=== PATIENT | male | born 1970 | race Two or more races ===

== ENCOUNTER 2020-04-10 08:49 | Emergency (ER) | payer OTHER, SELFPAY ==
[2020-04-10 08:56] VITALS: BP 138/92; PULSE 73; RESP 18; TEMP 37.1; O2SAT 100; BMI 29.5
--- NOTE | 2020-04-10 09:04 | ED_ITS ---
HPI - General Adult General Chief complaint: General Medical Stated complaint: NOT FEELING WELL Time Seen by Provider: 04/10/20 08:57 Source: patient and clerical production worker Mode of arrival: ambulatory Limitations: no limitations History of Present Illness HPI narrative: Patient tells me he has had general malaise and sore throat since yesterday. His children at home are sick and were tested for COVID yesterday. The results are pending. Onset (ago): day(s) ( One day) Radiation: non-radiation Severity: mild Quality: aching Pain Consistency: intermittent Relieving factors: none Exacerbating factors: none Associated symptoms: denies other symptoms Treatments prior to arrival: none Related Data Allergies Allergy/AdvReac Type Severity Reaction Status Date / Time No Known Allergies Allergy Verified 04/08/20 11:08 [No Known Allergies*] Review of Systems Review of Systems: Yes all other systems are reviewed and are negative Constitutional: Constitutional: Reports no additional constitutional complaints, Denies body ache(s), Denies chills, Denies fever(s), Denies headache(s), Reports malaise and Denies weakness Eyes: Eyes: Reports no additional eye complaints and Denies change in vision ENT: Reports system reviewed and no additional complaints, except as documented, Denies dizziness, Denies headache(s), Denies nasal congestion, Denies nasal discharge, Denies neck pain and Reports sore throat Cardiovascular: Cardiovascular: Reports no additional cardiovascular complaints, Denies chest pain, Denies leg edema and Denies dyspnea Respiratory: Respiratory: Reports no additional respiratory complaints, Denies cough and Denies dyspnea Gastrointestinal: Gastrointestinal: Reports no additional gastrointestinal complaints, Denies abdominal pain, Denies diarrhea, Denies nausea and Denies vomiting Genitourinary: Genitourinary: Denies urinary incontinence Musculoskeletal: Musculoskeletal: Reports no additional musculoskeletal complaints, Denies back pain, Denies arthralgias, Denies joint swelling, Denies neck pain, Denies numbness and Denies tingling Integumentary/Breasts: Skin/Breast: Reports system reviewed and no additional complaints, except as docu and Denies rash Neurologic: Reports system reviewed and no additional complaints, except as documented, Denies Abnormal speech present, Denies dizziness, Denies hea dache(s), Denies numbness, Denies tingling and Denies weakness PMFSH Past Medical History Attestation statement: The following information was validated with the patient. Source: obtained from family and nursing notes reviewed Surgical History History of surgery History of vasectomy Family History Family History Father No problems noted. Mother No problems noted. Social History Social History Alcohol intake: current Alcohol intake frequency: holidays/special occasions only Smoking Status: Never smoker Use of substances other than those prescribed or required for medical reasons: No Advance Directives: No Advance Directives Information Provided: No Physical Exam Vital Signs: Vital Signs: Vital Signs Temp Pulse Resp BP Pulse Ox 04/10/20 09:07 98.8 F 04/10/20 08:56 98.8 F 73 18 138/92 H 100 Body Mass Index 29.5 Const: General: cooperative, healthy appearing, comfortable and no acute distress Orientation/consciousness: patient oriented x3 Limitations: no limitations HENMT: Head: Yes normal to inspection Ears: hearing grossly normal bilaterally General nose exam: Normal external nose present Face and sinus: Yes normal facial exam Mouth: Normal oral and palatal mucosa present Throat: Yes posterior oropharynx normal Eyes: General: appearance normal, both eyes and all related structures Pupils: Equal, round and reactive pupils present Neck: Neck: Yes normal visual inspection Chest: Chest palpation & inspection: normal inspection of the chest Resp: Effort & Inspection: normal respiratory effort Auscultation: clear to auscultation bilaterally Cardio: Rate: regular rate Rhythm: regular rhythm Peripheral pulses: Peripheral pulses 2+ throughout GI: Inspection: Yes normal to inspection Palpation (GI): Soft to palpation and nontender Auscultation: normal bowel sounds Back/Spine/Pelvis: Thoracic/Lumbar Spine: thoracic and lumbar spine normal to inspection Skin: General skin exam: no rashes or lesions noted Neuro: General: patient oriented x3, no focal motor deficits and normal sensation to monofilament Cranial nerves: Yes Equal, round and reactive pupils present Cognition (Neuro): normal cognition Speech: No Abnormal s peech present Gait exam (Neuro): Normal gait present Motor exam (neuro): 5/5 motor strength present throughout Extrem: General: Yes normal to inspection Course Course Course Narrative: well appearing. Stable vital signs. Benign exam. Speaking full sentences with clear lung sounds. Throat is not consistent with strep pharyngitis. Patient requesting COVID testing. This was sent. Reviewed worrisome signs and symptoms and when to return to the emergency department. Comfortable discharge home. Discharge Plan Discharge Clinical Impression: Acute viral syndrome Patient Disposition: Home, Self-Care Instructions: Viral Syndrome (ED) Additional Instructions: We have tested you today for COVID 19. Test results take 1-2 days and we will call you with the results negative or positive. Take tylenol or motrin if able as needed for pain or fever. Stay well hydrated with fluids like water, gatorade and/or powerade. Wash hands at home. If living with others try to self isolate if possible. If unable wear a mask around others in your home and wash hands frequently. If COVID test is positive you will need to self isolate for a total of 10 days from when your symptoms started and be symptoms free for 24 hrs. You may return to work sooner if testing is negative and all symptoms resolved >72 hours. You should return to the emergency department for severe shortness of breath, chest pain or fever which does not respond to both tylenol and motrin at home. Referrals: Hunter Soto MD [Primary Care Provider] - 2 days Stand Alone Forms: Work/School Release Interventions: ED Discharge Assessment Last Done: 04/10/20 09:50 Discharge Date/Time: 04/10/20 09:51 Print Language: Bulgarian
[2020-04-10 09:07] VITALS: TEMP 37.1
== END 2020-04-10 09:51 | disposition home or self-care (01) ==
PROVIDERS: Nurse Practitioner Family; Emergency Provider Emergency Medicine; PCP Internal Medicine
DX: B34.9 Viral infection, unspecified (principal); R53.81 Other malaise; Z20.828 Contact with and (suspected) exposure to other viral communicable diseases
CPT/HCPCS: 99283; 99284; U0003

== ENCOUNTER 2020-08-09 06:58 | Outpatient (REF) | payer OTHER, SELFPAY ==
[2020-08-09 08:07] LABS: Appearance Urine CLEAR; Color Urine YELLOW; Glucose Urine UA NEG (NEG); Leukocyte Esterase Urine NEG (NEG); Nitrite Urine NEG (NEG); Specific Gravity - Urine >= 1.030 (1.005-1.025); Urine Blood TRACE (NEG); Urine Ketones NEG (NEG); Urine Protein NEG (NEG-TRACE)
[2020-08-09 08:17] LABS: Mucus Urine 1+ /LPF; RBC Urine 0-2 /HPF (0); Squamous Epithelial Cell Urine TRACE /LPF; WBC Urine 0-2 /HPF (0-4)
[2020-08-09 08:19] LABS: MANUAL DIFF FLAG NO
[2020-08-09 08:28] LABS: Basophils Absolute Auto 0.1 X10*3/uL (0.0-0.2); Basophils Percent Auto 0.9 % (0-2); Eosinophils Absolute Auto 0.1 X10*3/uL (0.0-0.4); Eosinophils Percent Auto 1.5 % (0-4); Hematocrit 46.1 % (42-52); Imm Gran Abs Auto 0.02 X10*3/uL (0.00-0.03); Imm Gran Pct Auto 0.4 % (0.0-0.4); Lymphocytes Absolute Auto 1.3 X10*3/uL (1.2-4.9); Lymphocytes Percent Auto 24.6 % (20-40); Mean Corpuscular HGB Conc 34.7 g/dl (31.0-36.0); Mean Corpuscular Hemoglobin 31.8 pg (27.0-33.0); Mean Corpuscular Volume 91.7 fL (80-98); Mean Platelet Volume 9.5 fL (9.4-12.4); Monocytes Absolute Auto 0.5 X10*3/uL (0.1-1.2); Monocytes Percent Auto 9.4 % (2-11); Neutrophils Absolute Auto 3.4 X10*3/uL (2.0-8.3); Neutrophils Percent Auto 63.2 % (45-73); Platelet Count 274 X10*3/uL (160-400); Red Blood Count 5.03 X10*6/uL (4.60-5.80); Red Cell Distribution Width 12.4 % (11.0-16.0); White Blood Count 5.4 X10*3/uL (4.8-10.8)
[2020-08-09 08:50] LABS: Alanine Aminotransferase 20 U/L (0-40); Albumin Level 4.5 g/dL (3.5-5.0); Alkaline Phosphatase 66 U/L (39-117); Anion Gap 11 (12-20); Aspartate Amino Transferase 18 U/L (5-37); Bilirubin Total 0.7 mg/dL (0.0-1.0); Blood Urea Nitrogen 14 mg/dL (9-16); Calcium 9.3 mg/dL (8.4-10.2); Carbon Dioxide 32 mmol/L (22-29); Chloride 104 mmol/L (96-108); Cholesterol 153 mg/dL; Estimated Glomerular Filt Rate > 60; Glucose Fasting 90 mg/dL (60-99); HDL Cholesterol 39 mg/dL; LDL Cholesterol Calculated 95 mg/dl; Potassium 4.4 mmol/L (3.3-5.1); Sodium 143 mmol/L (135-145); Total Protein 7.5 g/dL (6.5-8.0); Triglycerides 98 mg/dL
[2020-08-09 09:12] LABS: Thyroid Stimulating Hormone 1.18 uIU/mL (0.32-4.0)
== END 2020-08-09 06:59 | disposition home or self-care (01) ==
LOC: HO.LAB 06:58
PROVIDERS: PCP Internal Medicine; Visit Provider Internal Medicine
DX: E04.1 Nontoxic single thyroid nodule (principal); E66.3 Overweight; I10 Essential (primary) hypertension
CPT/HCPCS: 36415; 80053; 80061; 81001; 84439; 84443; 85025

== ENCOUNTER 2020-08-11 15:20 | Outpatient (REF) | payer OTHER, SELFPAY ==
--- NOTE | ~2020-08-11 | US_ITS ---
EXAMINATION: US SOFT TISSUE OF THE NECK CLINICAL INFORMATION: Localized swelling, mass and lump, trunk. COMPARISON: Ultrasound soft tissue head/neck thyroid dated 08/06/2014 and 01/25/2012. CT neck 01/21/2012. TECHNIQUE: Linear transducer grayscale and color Doppler examination of the left supraclavicular area and left posterior trunk. FINDINGS: Imaging through the left palpable supraclavicular area reveals a hypoechoic linear structure likely thickened musculature or ligament but no fluid collection or mass seen. Imaging through the palpable area through left posterior trunk reveals normal tissue layers with small anechoic area, likely fluid collection. It measures 2.1 x 0.6 x 1.5 cm. Differential diagnosis includes free fluid from muscle contusion or injury. US/US soft tiss head and/or neck IMPRESSION: Likely thickened muscle or ligament in left supraclavicular region where palpable lump is seen. There is an elliptical area of fluid collection in the left posterior trunk likely secondary vessel contusion/injury or focal inflammatory changes. No mass seen.
== END 2020-08-11 15:21 | disposition home or self-care (01) ==
LOC: HO.US 15:20
PROVIDERS: PCP Internal Medicine; Visit Provider Internal Medicine
DX: R22.2 Localized swelling, mass and lump, trunk (principal)
CPT/HCPCS: 76536

== ENCOUNTER 2021-09-30 06:55 | Outpatient (REF) | payer OTHER, SELFPAY ==
[2021-09-30 07:14] LABS: MANUAL DIFF FLAG NO
[2021-09-30 07:47] LABS: Basophils Absolute Auto 0.1 X10*3/uL (0.0-0.2); Eosinophils Absolute Auto 0.2 X10*3/uL (0.0-0.4); Eosinophils Percent Auto 3.5 % (0-4); Hematocrit 40.6 % (42.0-52.0); Hemoglobin 13.7 g/dl (14.0-18.0); Imm Gran Abs Auto 0.02 X10*3/uL (0.00-0.03); Imm Gran Pct Auto 0.3 % (0.0-0.4); Lymphocytes Absolute Auto 1.1 X10*3/uL (1.2-4.9); Lymphocytes Percent Auto 17.8 % (20-40); Mean Corpuscular HGB Conc 33.7 g/dl (31.0-36.0); Mean Corpuscular Hemoglobin 31.1 pg (27.0-33.0); Mean Corpuscular Volume 92.1 fL (80.0-98.0); Mean Platelet Volume 9.1 fL (9.4-12.4); Monocytes Absolute Auto 0.6 X10*3/uL (0.1-1.2); Monocytes Percent Auto 9.4 % (2-11); Neutrophils Absolute Auto 4.3 x10*3/uL (2.0-8.3); Platelet Count 226 X10*3/uL (160-400); Red Blood Count 4.41 X10*6/uL (4.60-5.80); Red Cell Distribution Width 12.5 % (11.0-16.0); White Blood Count 6.3 X10*3/uL (4.8-10.8)
[2021-09-30 08:10] LABS: Alanine Aminotransferase 17 U/L (0-40); Alkaline Phosphatase 62 U/L (39-117); Anion Gap 9 (12-20); Aspartate Amino Transferase 15 U/L (5-37); Bilirubin Total 0.5 mg/dL (0.0-1.0); Blood Urea Nitrogen 16 mg/dL (9-16); Calcium 9.2 mg/dL (8.4-10.2); Carbon Dioxide 31 mmol/L (22-29); Chloride 104 mmol/L (96-108); Cholesterol 134 mg/dL; Estimated Glomerular Filt Rate > 60; Glucose Fasting 92 mg/dL (60-99); HDL Cholesterol 38 mg/dL; LDL Cholesterol Calculated 83 mg/dl; Potassium 4.3 mmol/L (3.3-5.1); Sodium 140 mmol/L (135-145); Total Protein 6.8 g/dL (6.5-8.0); Triglycerides 66 mg/dL
[2021-09-30 08:17] LABS: Prostate Specific Antigen 0.88 ng/mL (<0.05-4.0); TSH reflex Free T4 0.56 uIU/mL (0.32-4.0); Vitamin D 25-OH Total 17.2 ng/mL (>30)
[2021-09-30 08:21] LABS: Appearance Urine CLEAR; Color Urine YELLOW; Glucose Urine UA NEG (NEG); Leukocyte Esterase Urine NEG (NEG); Nitrite Urine NEG (NEG); PH 6.5 (5.0-8.0); UACC Culture Trigger NO; Urine Blood TRACE (NEG); Urine Ketones NEG (NEG); Urine Protein NEG (NEG-TRACE)
[2021-09-30 09:18] LABS: Squamous Epithelial Cell Urine TRACE /LPF; WBC Urine 0 /HPF (0-4)
== END 2021-09-30 06:56 | disposition home or self-care (01) ==
LOC: HO.LAB 06:55
PROVIDERS: PCP Internal Medicine; Visit Provider Internal Medicine
DX: Z00.00 Encounter for general adult medical examination without abnormal findings (principal); Z12.5 Encounter for screening for malignant neoplasm of prostate; E78.00 Pure hypercholesterolemia, unspecified; I10 Essential (primary) hypertension; E55.9 Vitamin D deficiency, unspecified; N40.0 Benign prostatic hyperplasia without lower urinary tract symptoms
CPT/HCPCS: 36415; 80053; 80061; 81001; 82306; 84153; 84443; 85025

== ENCOUNTER 2023-02-06 14:37 | Outpatient (REF) | payer OTHER, SELFPAY ==
--- NOTE | ~2023-02-06 | US_ITS ---
EXAMINATION: US THYROID CLINICAL INFORMATION: Thyroid nodule. COMPARISON: Ultrasound soft tissue neck 08/11/2020. Ultrasound soft tissue head/neck thyroid dated 12/23/2016. TECHNIQUE: Linear transducer grayscale and color Doppler examination with attention to the region of the thyroid. FINDINGS: SIZE: Measurements of the thyroid lobes and nodules are given in sagittal, anteroposterior and transverse dimensions respectively. Right Thyroid Lobe: 4.4 x 1.6 x 2.2 cm, volume 8.1 mL. Previously 4.4 x 1.9 x 2.0 cm, volume 8.7 mL. Parenchyma: The gland echotexture is homogeneous. Thyroid vascularity is normal. Left Thyroid Lobe: 4.7 x 1.6 x 1.8 cm, volume 7.1 mL. Previously 5.0 x 1.7 x 1.6 cm, volume 7.0 mL. Parenchyma: The gland echotexture is homogeneous. Thyroid vascularity is normal. Isthmus: 0.5 cm in maximum AP dimension. Previously 0.2 cm. Estimated total number of nodules greater than or equal to 1 cm: 1. Shel[employer]ocate nodules are described as follows: 1. Location: Right inferior. Size: 1.0 x 0.9 x 1.0 cm, volume 0.5 mL. Previously: 1.5 x 1.0 x 1.3 cm, volume 1.0 mL. Nodule characteristics: Composition: Solid (2). Echogenicity: Isoechoic (1). Shape: Not taller than wide (0). Margins: Ill-defined (0). Echogenic Foci: None (0). ACR TI-RADS total points: 3 ACR TI-RADS category: 3 Significant change in size (>/= 20% in 2 dimensions and minimal increase of 2 mm or 50% or greater increase in volume): No Change in features: No Change in ACR TI-RADS risk category: No NODES: No lymphadenopathy is seen in the tissue surrounding the thyroid gland. US/US thyroid IMPRESSION: A small right thyroid lobe nodule seen, as detailed. No specific ultrasound follow-up is recommended. ACR TI-RADS RECOMMENDATION REFERENCE: Ultrasound-guided fine-needle aspiration, follow up ultrasound, no further followup. * TR1 (0 point) and TR2 (2 points): No FNA or followup * TR3 (3 points): FNA if more than or equal to 2.5 cm in maximum dimension, follow up ultrasound in 1, 3 and 5 years if 1.5 to 2.4 cm in maximum dimension. * TR4 (4-6 points): FNA if more than or equal to 1.5 cm in maximum dimension, follow up ultrasound in 1, 2, 3 and 5 years if 1 to 1.4 cm in maximum dimension. * TR5 (more than or equal to 7 points): FNA if more than or equal to 1 cm in maximum dimension, follow up ultrasound every year for 5 years if 0.5 to 0.9 cm in maximum dimension. * TR3, TR4 or TR5 nodules that are below the size threshold for follow up receive no followup.
== END 2023-02-06 14:38 | disposition home or self-care (01) ==
LOC: HO.US 14:37
PROVIDERS: Absent Provider Internal Medicine; PCP Internal Medicine; Visit Provider Registered Nurse
DX: E04.2 Nontoxic multinodular goiter (principal)
CPT/HCPCS: 76536

== ENCOUNTER 2023-07-08 09:43 | Day surgery (SDC) | payer OTHER, SELFPAY ==
[2023-07-04 14:31] VITALS: BMI 28.3
[2023-07-08 10:33] VITALS: BMI 27.4
--- NOTE | 2023-07-08 10:34 | PC.NURSE ---
patient states used cocaine many years ago in past, along with alcohol and cigarettes.
--- NOTE | 2023-07-08 10:47 | P.CONAN_ITS ---
HPI - Anesthesia Eval Consult details Narrative: 53 yo male patient for Colonoscopy PMFSH Active Problems Active Problems: All Active Problems (Updated 07/08/23 @ 10:48 by Molly Arellano MD) Annual physical exam (Acute) Colon cancer screening (Acute) Benign prostatic hyperplasia with elevated prostate specific antigen (PSA) (Acute) Lipoma (Acute) GERD without esophagitis (Acute) Subcutaneous mass of supraclavicular area (Acute) Overweight (BMI 25.0-29.9) (Acute) Left knee pain (Acute) Thyroid nodule (Acute) Benign essential hypertension (Acute) Vagal with IV placement this morning. VSS now Past Medical History Medical History (Updated 07/08/23 @ 11:01 by Molly Arellano MD) Cocaine abuse Benign prostatic hyperplasia with elevated prostate specific antigen (PSA) Lipoma GERD without esophagitis Subcutaneous mass of supraclavicular area Overweight (BMI 25.0-29.9) Left knee pain Thyroid nodule Benign essential hypertension Family History Family History Father No problems noted. Mother No problems noted. Family history of problems with anesthesia: No Surgical History Surgical History History of surgery History of vasectomy History of Problems with Anesthesia: No Social History Social History (Updated 07/08/23 @ 11:00 by Molly Arellano MD) Housing: House Alcohol intake: current Alcohol intake frequency: former alcohol drinker Patient Tobacco Use Status: Former Tobacco user Second Hand Smoke Exposure: Yes Current occupational status: employed Meds Allergies Allergy/AdvReac Type Severity Reaction Status Date / Time No Known Allergies Allergy Verified 07/08/23 10:35 [No Known Allergies*] Active Medications: Current Medications Lactated Ringer's (Lr) 1,000 mls @ 80 mls/hr IVCONT .[id number] NISHANT Sodium Biphosphate/Sodium Phosphate (Sodium Phosphate,[place]-Dibasic 133 Ml Enema) 133 ml NC ONCE PRN PRN Reason: Poor Colonoscopy Prep Results Exam Height,Weight and Vital Signs: Height 6 ft Weight 91.716 kg Vital Signs Temp Pulse Resp BP Pulse Ox O2 Del Method 07/08/23 10:49 45 L 18 97/61 07/08/23 10:48 97.9 F 83 18 128/87 98 Room Air Airway Mallampati Class: III TM Dist: >3cm Neck ROM: Full Loose/Missing/Broken Teeth: No (Permanent bridge intact. Denies broken, loose, missing teeth) Heart: RRR Lungs: CTAB Assessment and Plan Assessment Anesthesia Assessment: Anesthesia Plan Discussed and Chart Reviewed Final Anesthetic Review Family History of Problems with Anesthesia: No History of Problems with Anesthesia: No NPO: Yes ASA Class: II Final Preanesthetic Review: No Changes in Pt Med Stat, Meds/Allgs Chart Reviewed, Consent Obtained/Reviewed and Anes Risks/Benef Reviewed Patient Risk: Intermediate Procedure Risk: Low Assessment/Block/Sedation in SS: Assess/Block/Sedation-SS Anesthetic Plan Anesthetic Plan: MAC: and TIVA Disposition: Standard PACU
[2023-07-08 10:48] VITALS: BP 128/87; PULSE 83; RESP 18; TEMP 36.6; O2SAT 98
[2023-07-08 10:49] VITALS: BP 97/61; PULSE 45; RESP 18
[2023-07-08] MEDS: Lactated Ringers 1,000 ML 80 ML IVCONT (10:52)
--- NOTE | 2023-07-08 10:53 | PC.NURSE ---
dizziness post IV has resolved. see notes in vs interventions.
[2023-07-08 12:20] VITALS: BP 94/54; PULSE 74; RESP 16; TEMP 37; O2SAT 96
--- NOTE | 2023-07-08 12:20 | PM.OP ---
Brief Operative Note Date of Service: 07/08/23 Pre-op diagnosis: Screening Post-op diagnosis: other (Mild diverticulosis) Procedure: Colonosocpy to the cecum and TI Surgeon: Memo Jarquin MD Anesthesia: MAC Was an International Operations Manager used for this Procedure?: No Estimated blood loss (mL): 0 Pathology: none sent Condition: stable Disposition: PACU
[2023-07-08 12:25] VITALS: BP 115/70; PULSE 68; RESP 16; O2SAT 95
[2023-07-08 12:35] VITALS: BP 117/85; PULSE 62; RESP 20; TEMP 36.3; O2SAT 97
--- NOTE | 2023-07-08 12:51 | OP_ITS ---
DATE OF SERVICE: 07/08/2023 SURGEON: Memo Jarquin MD INDICATIONS: The patient presents for evaluation of colorectal cancer screening. Full consent has been obtained from him for this, including risks of bleeding and perforation. PREOPERATIVE DIAGNOSIS: Colorectal cancer screening. POSTOPERATIVE DIAGNOSIS: PROCEDURE PERFORMED: Colonoscopy to cecum and terminal ileum. ESTIMATED BLOOD LOSS: COMPLICATIONS: ANESTHESIA: Monitored anesthesia care. ASSISTANTS: SPECIMENS: POSTOPERATIVE DIAGNOSES: Colorectal cancer screening, mild sigmoid diverticulosis, small internal hemorrhoids. DESCRIPTION OF PROCEDURE: The patient was placed in the left lateral decubitus position. The digital rectal exam revealed no abnormalities. The Olympus video pediatric colonoscope was entered into the rectum and advanced easily to the cecum. Once in the cecum, I did identify normal-appearing cecal pouch with appendiceal orifice and a normal-appearing ileocecal valve. The terminal ileum was cannulated and appeared normal. The scope was withdrawn back in the colon. The entire cecum and ileocecal valve appeared normal. The scope was slowly withdrawn assessing all mucosal surfaces carefully. Preparation was excellent after some irrigation and suctioning. I did not visualize any sign of polyps, colitis, nor angiodysplasia. There was a mild amount of sigmoid diverticulosis. In the rectum, scope was retroflexed visualizing small internal hemorrhoids, but no other pathology. The rectal mucosa appeared normal. The scope was straightened and withdrawn from the patient. He tolerated the procedure well and was returned to the recovery area in stable condition. IMPRESSION: 1. Mild sigmoid diverticulosis. 2. Small internal hemorrhoids. PLAN: Given today's negative exam and negative family history, I would recommend a followup colonoscopy in 10 years. He will otherwise see me on a p.r.n. basis. MD LORENA Obrien/ELOISE / [id number] TIM
== END 2023-07-08 13:15 | disposition home or self-care (01) ==
PROVIDERS: PCP Internal Medicine; Visit Provider Internal Medicine
PROC: 0DJD8ZZ Inspection of Lower Intestinal Tract, Via Natural or Artificial Opening Endoscopic (ICD-10-PCS; CPT 45378; principal; 2023-07-08 10:30)
DX: Z12.11 Encounter for screening for malignant neoplasm of colon (principal); K57.30 Diverticulosis of large intestine without perforation or abscess without bleeding; K64.8 Other hemorrhoids; I10 Essential (primary) hypertension; F14.10 Cocaine abuse, uncomplicated; Z79.899 Other long term (current) drug therapy
CPT/HCPCS: 45378; J2704

== ENCOUNTER 2023-08-24 07:03 | Outpatient (REF) | payer OTHER, SELFPAY ==
[2023-08-24 07:47] LABS: Alanine Aminotransferase 19 U/L (0-40); Albumin Level 4.2 g/dL (3.5-5.0); Alkaline Phosphatase 72 U/L (39-117); Anion Gap 12 (12-20); Aspartate Amino Transferase 16 U/L (5-37); Bilirubin Total 0.6 mg/dL (0.0-1.0); Blood Urea Nitrogen 15 mg/dL (9-16); Calcium 9.8 mg/dL (8.4-10.2); Carbon Dioxide 28 mmol/L (22-29); Chloride 104 mmol/L (96-108); Cholesterol 150 mg/dL (<200); Estimated Glomerular Filt Rate > 60; Glucose Random 93 mg/dL (60-115); HDL Cholesterol 40 mg/dL (>40); LDL Cholesterol Calculated 98 mg/dL (<100); Potassium 4.1 mmol/L (3.3-5.1); Sodium 140 mmol/L (135-145); Total Protein 7.5 g/dL (6.5-8.0); Triglycerides 64 mg/dL (<150)
[2023-08-24 08:05] LABS: TSH reflex Free T4 0.74 uIU/mL (0.32-4.0)
[2023-08-24 08:12] LABS: Prostate Specific Antigen 1.14 ng/mL (<0.05-4.0)
== END 2023-08-24 07:04 | disposition home or self-care (01) ==
LOC: HO.LAB 07:03
PROVIDERS: PCP Internal Medicine; Visit Provider Registered Nurse
DX: Z12.5 Encounter for screening for malignant neoplasm of prostate (principal); Z13.6 Encounter for screening for cardiovascular disorders; E04.2 Nontoxic multinodular goiter
CPT/HCPCS: 36415; 80053; 80061; 84153; 84443

== ENCOUNTER 2023-10-23 09:33 | Outpatient (AMB) | payer OTHER, SELFPAY ==
--- NOTE | 2023-10-23 10:33 | A.OFFVIS_ITS ---
Vital Signs 10/23/23 10:37 Height 5 ft 11.5 in Weight 206 lb BMI 28.3 BP 118/74 Blood Pressure Location Rt brachial Position Sitting Pulse 61 Intake Visit Reasons: Lipoma of back Intake Note: This patient presents for an assessment for lipoma of back. Pt c/o; reports no pain or discomfort. Dependency Case Manager Required: Yes Dependency Case Manager Language: Receiving Teller Name: Ban Information Interpreted: non-clinical & clinical Accompanied by: Self / Same As Patient Allergies No Known Allergies [No Known Allergies*] Allergy (Verified 10/23/23 10:38) Medication List - Last Reconciled 10/23/23 by Chilo Angel MD amlodipine 2.5 mg PO DAILY hydrochlorothiazide 12.5 mg PO QAM 90 days lisinopril 40 mg PO DAILY 90 days omeprazole 20 mg PO DAILY 90 days HPI HPI Lipoma of back: Details: 53-year-old male referred for a lipoma on the back. He says that he has noticed this lump for about a year. He describes discomfort in wants this removed. He denies any skin changes. He denies any drainage. [facility] Medical History Cocaine abuse Benign prostatic hyperplasia with elevated prostate specific antigen (PSA) Lipoma GERD without esophagitis Subcutaneous mass of supraclavicular area Overweight (BMI 25.0-29.9) Left knee pain Thyroid nodule Benign essential hypertension Surgical History History of surgery History of vasectomy Family History Father No problems noted. Mother No problems noted. Social History Housing: House Alcohol intake: current Alcohol intake frequency: former alcohol drinker Patient Tobacco Use Status: Former Tobacco user Second Hand Smoke Exposure: Yes Current occupational status: employed Review of Systems Const Denies chills and Denies fever(s) Card Denies chest pain, Denies dyspnea and Denies dyspnea on exertion Resp Denies cough, Denies dyspnea and Denies dyspnea on exertion GI Denies hematochezia and Denies change in bowel habits Denies hematuria and Denies difficulty urinating Musc Denies back pain and Denies limited range of motion Neuro Denies focal weakness and Denies convulsions Psych Denies depression and Denies mood swings Physical Exam Vital Signs: Last Vital Signs Pulse 61 10/23/23 10:37 BP 118/74 10/23/23 10:37 BMI result Body Mass Index 28.3 Const General: comfortable and no acute distress Orientation/consciousness: patient oriented x3 Neck Neck: Yes no lymphadenopathy Resp Auscultation: clear to auscultation bilaterally Cardio Rhythm: regular rhythm GI Palpation (GI): Soft to palpation, nontender and no guarding Back/Spine/Pelvis Other: Lipomatous mass, about 3 cm in size, on the left upper back, well-defined mobile Neuro General: patient oriented x3 Assessment & Plan Assessment & Plan (1) Lipoma: Code(s): D17.9 - Benign lipomatous neoplasm, unspecified Category: Medical Qualifiers: Lipoma location: trunk Qualified Code(s): D17.1 - Benign lipomatous neoplasm of skin and subcutaneous tissue of trunk Plan: He wants to proceed with excision of this lipoma from the back. I explained the technique of excision under local anesthesia. I reviewed the risks including but not limited to bleeding and infections as well as the benefits and alternatives. I reviewed with him what to expect postoperatively. He says he understands and wants to proceed. This will be done as an office procedure on his next visit. Coding Level of Care Code New Pt Level 3 (35139) Diagnoses Lipoma of torso D17.1 Lipoma location: trunk
[2023-10-23 10:37] VITALS: BP 118/74; PULSE 61; BMI 28.3
== END 2023-10-23 10:51 | disposition home or self-care (01) ==
PROVIDERS: PCP Internal Medicine; Visit Provider Surgery
DX: D17.1 Benign lipomatous neoplasm of skin and subcutaneous tissue of trunk (principal)
CPT/HCPCS: 99203

== ENCOUNTER → 2023-10-23 09:33 | Outpatient (BNVA) | payer OTHER, SELFPAY | PROVIDERS: PCP Internal Medicine; Visit Provider Surgery ==

== ENCOUNTER 2023-11-21 14:00 | Outpatient (AMB) | payer OTHER, SELFPAY ==
--- NOTE | 2023-11-21 15:39 | MHC.PERIOP ---
Perioperative consult (office) Opioid risk tool Total Score 0 Total Score Risk Category Low Risk Recommendations Kasey-op med management Currently, there are no high priority active medications. Therefore, no specific actions are indicated. Coding
--- NOTE | 2023-11-21 15:44 | A.OFFVIS_ITS ---
Intake Visit Reasons: Exc lipoma of back Allergies No Known Allergies [No Known Allergies*] Allergy (Verified 10/23/23 10:38) HPI HPI Exc lipoma of back: Details: He is here for excision of a lipoma from the back [facility] Medical History (Updated 11/21/23 @ 15:46 by Chilo Angel MD) Lipoma of back Cocaine abuse Benign prostatic hyperplasia with elevated prostate specific antigen (PSA) Lipoma GERD without esophagitis Subcutaneous mass of supraclavicular area Overweight (BMI 25.0-29.9) Left knee pain Thyroid nodule Benign essential hypertension Surgical History History of surgery History of vasectomy Family History Father No problems noted. Mother No problems noted. Social History Housing: House Alcohol intake: current Alcohol intake frequency: former alcohol drinker Patient Tobacco Use Status: Former Tobacco user Second Hand Smoke Exposure: Yes Current occupational status: employed Office Procedures Excision Details: He was in right lateral decubitus position. The lipomas seen on the left upper back. This area was prepped and draped. Lidocaine 1% was used for local anesthesia. I made an incision on the skin overlying the lipoma with a blade 15. This was carried down sharply through the full-thickness of the skin and thick subcutaneous fat until was able to visualize the lipoma. I sharply dissected the lipoma off the rest of the subcutaneous layer circumferentially with Metzenbaum scissors until this was delivered and sent as a specimen. This measured 5 x 4 cm. I observed for hemostasis. Once hemostasis was confirmed, I closed the incision with full-thickness nylon 3-0 interrupted sutures. Dressings were applied. The procedure was completed. He tolerated procedure well. There were no immediate complications. There was minimal blood loss. [id number]/arms/legs >4cm Procedure code (CPT) selection complete Assessment & Plan Assessment & Plan (1) Lipoma of back: Code(s): D17.1 - Benign lipomatous neoplasm of skin and subcutaneous tissue of trunk Category: Medical Plan: Excision was done in the office under local anesthesia. He tolerated procedure well. He was given wound care instructions. He will be seen for removal sutures. He can take Tylenol and ibuprofen. Coding Level of Care Code Procedure Only Diagnoses Lipoma of back D17.1 CPT Codes Trunk/Arms/Legs - CPT: 24697-[id number]/arms/legs >4cm ([id number])
== END 2023-11-21 15:52 | disposition home or self-care (01) ==
PROVIDERS: PCP Internal Medicine; Visit Provider Surgery
DX: D17.1 Benign lipomatous neoplasm of skin and subcutaneous tissue of trunk (principal)
CPT/HCPCS: 21931

== ENCOUNTER → 2023-11-21 14:00 | Outpatient (BNVA) | payer OTHER, SELFPAY | PROVIDERS: PCP Internal Medicine; Visit Provider Surgery | DX: D17.1 Benign lipomatous neoplasm of skin and subcutaneous tissue of trunk (principal) | CPT/HCPCS: 21931; 88304 ==

== ENCOUNTER 2023-12-09 14:59 | Outpatient (AMB) | payer OTHER, SELFPAY ==
--- NOTE | 2023-12-09 15:16 | A.OFFVIS_ITS ---
Vital Signs 12/09/23 15:28 Height 5 ft 11.5 in Intake Visit Reasons: wound check lipoma~ lt upper back Intake Note: This patient presents for a post-op assessment status post excision lipoma left upper back. Patient c/o; reports no complaints at this time. Deicer Element Winder Machine Required: Yes Deicer Element Winder Machine Language: Macedonian Accompanied by: Self / Same As Patient Allergies No Known Allergies [No Known Allergies*] Allergy (Verified 12/09/23 15:29) HPI HPI wound check lipoma~ lt upper back: Details: He underwent excision of a large lipoma from the left upper back under local anesthesia last 11/21/2023. He tolerated procedure well. He currently denies significant complaints. [facility] Medical History Lipoma of back Cocaine abuse Benign prostatic hyperplasia with elevated prostate specific antigen (PSA) Lipoma GERD without esophagitis Subcutaneous mass of supraclavicular area Overweight (BMI 25.0-29.9) Left knee pain Thyroid nodule Benign essential hypertension Surgical History S/P excision of lipoma (~11/21/23) History of surgery History of vasectomy Family History Father No problems noted. Mother No problems noted. Social History Housing: House Alcohol intake: current Alcohol intake frequency: former alcohol drinker Patient Tobacco Use Status: Former Tobacco user Second Hand Smoke Exposure: Yes Current occupational status: employed Review of Systems Const Denies chills and Denies fever(s) Physical Exam Const General: comfortable and no acute distress Resp Effort & Inspection: normal respiratory effort Back/Spine/Pelvis Other: Excision site is well healed, not infected, sutures intact Assessment & Plan Assessment & Plan (1) Lipoma of back: Code(s): D17.1 - Benign lipomatous neoplasm of skin and subcutaneous tissue of trunk Category: Medical Plan: Status post excision. His incision is well healed. I removed his sutures. His path report shows a fibrolipoma. He understands the benign nature of this pathology. He can follow up on a p.r.n. basis. Coding Level of Care Code Global (08349) Diagnoses Lipoma of back D17.1
== END 2023-12-09 15:55 | disposition home or self-care (01) ==
PROVIDERS: PCP Internal Medicine; Visit Provider Surgery
DX: D17.1 Benign lipomatous neoplasm of skin and subcutaneous tissue of trunk (principal)
CPT/HCPCS: 99024

== ENCOUNTER → 2023-12-09 14:59 | Outpatient (BNVA) | payer OTHER, SELFPAY | PROVIDERS: PCP Internal Medicine; Visit Provider Surgery ==

== ENCOUNTER 2024-09-19 07:07 | Outpatient (REF) | payer BC, SELFPAY ==
[2024-09-19 08:48] LABS: Alanine Aminotransferase 29 U/L (0-40); Albumin Level 4.3 g/dL (3.5-5.0); Alkaline Phosphatase 82 U/L (39-117); Anion Gap 11 (12-20); Aspartate Amino Transferase 25 U/L (5-37); Bilirubin Total 0.5 mg/dL (0.0-1.0); Blood Urea Nitrogen 17 mg/dL (9-16); Calcium 9.6 mg/dL (8.4-10.2); Carbon Dioxide 30 mmol/L (22-29); Chloride 104 mmol/L (96-108); Cholesterol 148 mg/dL (<200); Estimated Glomerular Filt Rate > 60; Glucose Random 91 mg/dL (60-115); HDL Cholesterol 42 mg/dL (>40); LDL Cholesterol Calculated 97 mg/dL (<100); Sodium 141 mmol/L (135-145); Total Protein 7.4 g/dL (6.5-8.0); Triglycerides 47 mg/dL (<150)
[2024-09-19 09:01] LABS: Prostate Specific Antigen Scr 1.48 ng/mL (<0.05-4.0)
== END 2024-09-19 07:08 | disposition home or self-care (01) ==
LOC: HO.LAB 07:07
PROVIDERS: PCP Internal Medicine; Visit Provider Internal Medicine
DX: I10 Essential (primary) hypertension (principal); Z12.5 Encounter for screening for malignant neoplasm of prostate
CPT/HCPCS: 36415; 80053; 80061; 84153

== ENCOUNTER 2025-05-04 09:50 | Outpatient (REF) | payer BC, SELFPAY ==
--- NOTE | ~2025-05-04 | XR_ITS ---
EXAMINATION: XR KNEE 4 OR MORE VIEWS RIGHT HISTORY: right knee pain COMPARISON: There are no prior studies available for comparison. FINDINGS: Four views of the right knee are submitted. Osseous mineralization is normal. There is no fracture or dislocation. The joint spaces are preserved. There are marginal osteophytes involving the patellofemoral articulation. A 7 mm rounded density in the intercondylar notch may represent a loose body. There is no joint effusion. XR/XR knee RT 4V IMPRESSION: Mild patellofemoral osteoarthritis. Possible 7 mm loose body. Electronically signed by: Memo Negron MD 05/04/2025 12:20 PM [facility]
--- OUTSIDE RECORDS SUMMARY | 2025-05-04 09:15 | XMS_ITS | Encounter Summary ---
Author Organization [employer] Address [address] [place] [id number] Care Team Providers Care Anchor Tack Puller Name Role Phone Gil Nath MD Primary Care Provide r Reason for Referral * Consultation (Routine) - Authorized Specialty Diagnoses / Procedures Referred By Contac t Referred To Contact Orthopaedic Surgery Diagnoses Chronic pain of right knee Gil Nath MD [address] [place] [phone] Phone: tel: fax: [facility] [place] Orthopedics [address] [place] [address] [place] [phone] Phone: tel: Referral ID Status Reason Start Date Expiration Date Visits Requested Visits Authorized [id number] Authorized Specialty Services Required 05/04/2026 1 1 Reason for Visit * Reason Comments Follow up HTN Encounter Details Date Type Department Care Team (Late st Contact Info) Description 05/04/2025 9:15 AM EST Office Visit [facility] MED[facility]INE [address] [place], [place] [id number] Gil Nath MD [address] [place] [address] Benign essential hypertension (Primary Dx); Chronic pain of right knee; Encounter for immunization Social History Tobacco Use Types Packs/Day Years Used Date Smoking Tobacco: Never Passive Smoke Exposure: Never Smokeless Tobacco: Never Tobacco Cessation:Counseling Given: Not Answered Alcohol Use Standard Drinks/Week Comments Never 0 (1 standard drink = 0.6 oz pur e alcohol) Depression Answer Date Recorded Patient Health Questionnaire-9 Score 0 10/22/2024 Patient Health Questionnaire-9 Score 0 10/22/2024 Last PHQ-9: Questionnaire Data Not on file 0 10/22/2024 Housing Stability Answer Date Recorded What is your housing situation today? I have milla abraham 10/22/[address] you li ve. Do you have problems with any of the following? None of the above 10/22/2024 Food Insecurity Answer Date Recorded Within the past 12 months, y ou worried that your food would run out before you got money to buy more: Never True 10/22/2024 Within the past 12 months,th e food you bought just didn't last and you didn't have enough money to get more: Never True Transportation Answer Date Recorded In the past 12 months, has l ack of transportation kept you from medical appts, meetings, work or from getting things needed for daily living? No 10/22/2024 Utilities Answer Date Recorded In the past 12 months, has t he electric, gas, oil or water company threatened to shut off services in your home? No 10/22/2024 Depression Answer Date Recorded Patient Health Questionnaire-2 Score 0 10/22/2024 Internet Access Answer Date Recorded Internet Access Q1 Yes 02/10/2024 Internet Access Q2 Not on file 02/10/2024 Sex and Gender Information Value Date Recorded Sex Assigned at Male 04/09/2022 10:16 AM EDT Legal Sex Male 10:16 AM EDT Gender Identity Male 04/09/2022 10:16 AM EDT Sexual Orientation Straight 06/21/2022 11 :41 AM EST documented as of this encounter Last Filed Vital Signs Vital Sign Reading Time Taken Comments Blood Pressure 122/80 05/04/2025 8:55 AM EST Pulse 68 05/04/2025 8:55 AM EST Temperature 36.7 C (98 F) 05/04/2025 8:55 AM EST Respiratory Rate 18 05/04/2025 8:55 AM EST Oxygen Saturation - - Inhaled Oxygen Concentration - - Weight 96.2 kg (212 lb) 05/04/2025 8:55 AM EST Height 180.3 cm (5' 11 ) 05/04/2025 8:55 AM EST Body Mass Index 29.57 05/04/2025 8:55 AM EST documented in this encounter Progress Notes * Gil Denton MD - 05/04/2025 9:15 AM EST SUBJECTIVE Milind Richardson is a 54 y.o. male who presents for Follow up HTN . Milind Richardson, 54 years Chronic Right Knee Pain - History of right knee injury many years ago, described as a bad injury with persistent issues since - Reports chronic right knee pain, currently rated 5/10 in intensity - Pain described as intermittent, worsens with certain movements and when walking - Denies locking, giving way, or instability of the knee - Remembers an initial test after the injury showed a fracture in the posterior aspect of the knee - No recent trauma reported - No swelling or fluid accumulation reported - Occasional discomfort with knee flexion HPI Review of Systems Constitutional: Negative for fever. HENT: Negative for sore throat. Respiratory: Negative for cough and shortness of breath. Cardiovascular: Negative for chest pain. Gastrointestinal: Negative for abdominal pain. Neurological: Negative for headaches. Allergies[1] OBJECTIVE Vitals: 05/04/25 0855 BP: 122/80 BP Location: Left arm Patient Position: Sitting BP Cuff Size: Adult Pulse: 68 Resp: 18 Temp: 98 ??F (36.7 ??C) TempSrc: Oral Weight: 212 lb (96.2 kg) Height: 5' 11 (1.803 m) Physical Exam Vitals reviewed. Constitutional: Appearance: Normal appearance. HENT: Head: Normocephalic and atraumatic. Right Ear: External ear normal. Left Ear: External ear normal. Nose: Nose normal. Mouth/Throat: Mouth: Mucous membranes are moist. Eyes: Conjunctiva/sclera: Conjunctivae normal. Cardiovascular: Rate and Rhythm: Normal rate and regular rhythm. Pulmonary: Effort: Pulmonary effort is normal. Breath sounds: Normal breath sounds. Musculoskeletal: Right knee: Crepitus present. No swelling, effusion or erythema. Normal range of motion. No tenderness. Instability Tests: Anterior drawer test negative. Posterior drawer test negative. Anterior Angelica test negative. Medial Fernando test negative and lateral Fernando test negative. Skin: General: Skin is warm. Neurological: Mental Status: He is alert. Mental status is at baseline. Assessment/Plan Problem List Items Addressed This Visit Benign essential hypertension - Primary Patient here for a follow up regarding his Hypertension BP currently controlled on a regimen of: Lisinopril 40 mg po daily, Hctz 12.5 mg po daily and Amlodipine 2.5 mg po daily Most recent electrolytes, Bun and Creatinine done on: Lab Results Component Value Date NA 141 09/19/2024 NA 140 08/24/2023 K 4.0 09/19/2024 K 4.1 08/24/2023 CL 104 09/19/2024 CL 104 08/24/2023 BUN 17 (H) 09/19/2024 BUN 15 08/24/2023 CREATININE 1.16 09/19/2024 CREATININE 1.06 08/24/2023 were within normal limits. Plan: continue current regimen, Repeat BMP patient advised to adhere to a low sodium diet, encouraged about medication compliance, counseled about weight loss f/u 4 months The 10-year ASCVD risk score (Dereck SALMERON, et al., 2019) is: 4.3% Values used to calculate the score: Age: 54 years Clinically relevant sex: Male Is Non- : No Diabetic: No Tobacco smoker: No Systolic Blood Pressure: 119 mmHg Is BP treated: Yes HDL Cholesterol: 42 mg/dL Total Cholesterol: 148 mg/dL Relevant Medications amLODIPine (Norvasc) 2.5 MG tablet hydroCHLOROthiazide 12.5 MG tablet lisinopril 40 MG tablet Other Relevant Orders Comprehensive Metabolic Panel Lipid Panel, Standard Right knee pain Pt here with c/o acute on Chronic right knee pain likely due to degenerative arthritis. No evidenceof acute injury or effusion. Possible internal derangement cannot be ruled out; radiograph may not show soft tissue pathology. - Ordered right knee radiograph to be performed today. Referred to orthopedics for further evaluation. Advised to begin exercise as tolerated. Will contact if radiograph or laboratory results are abnormal. Relevant Orders XR Knee 4+ Views Right Referral to Orthopaedic Surgery Other Visit Diagnoses Encounter for immunization Relevant Orders FLU VACCINE TRIVALENT [id number] (Fluarix) 19 yrs + (Completed) This note was drafted using Ambient (AI) technology. The patient/patient's guardian has been informed and has consented to the use of this technology: Yes No future appointments. [1] No Known Allergies documented in this encounter Miscellaneous Notes * Assessment & Plan Note - Gil Denton MD - 05/04/2025 9:31 AM EST Associated Problem(s): Right knee pain Pt here with c/o acute on Chronic right knee pain likely due to degenerative arthritis. No evidenceof acute injury or effusion. Possible internal derangement cannot be ruled out; radiograph may not show soft tissue pathology. - Ordered right knee radiograph to be performed today. Referred to orthopedics for further evaluation. Advised to begin exercise as tolerated. Will contact if radiograph or laboratory results are abnormal. * Assessment & Plan Note - Gil Denton MD - 05/04/2025 8:27 AM EST Associated Problem(s): Benign essential hypertension Patient here for a follow up regarding his Hypertension BP currently controlled on a regimen of: Lisinopril 40 mg po daily, Hctz 12.5 mg po daily and Amlodipine 2.5 mg po daily Most recent electrolytes, Bun and Creatinine done on: Lab Results Component Value Date NA 141 09/19/2024 NA 140 08/24/2023 K 4.0 09/19/2024 K 4.1 08/24/2023 CL 104 09/19/2024 CL 104 08/24/2023 BUN 17 (H) 09/19/2024 BUN 15 08/24/2023 CREATININE 1.16 09/19/2024 CREATININE 1.06 08/24/2023 were within normal limits. Plan: continue current regimen, Repeat BMP patient advised to adhere to a low sodium diet, encouraged about medication compliance, counseled about weight loss f/u 4 months The 10-year ASCVD risk score (Dereck SALMERON, et al., 2019) is: 4.3% Values used to calculate the score: Age: 54 years Clinically relevant sex: Male Is Non- : No Diabetic: No Tobacco smoker: No Systolic Blood Pressure: 119 mmHg Is BP treated: Yes HDL Cholesterol: 42 mg/dL Total Cholesterol: 148 mg/dL documented in this encounter Plan of Treatment Scheduled Orders Name Type Priority Associated Diagnoses Orde r Schedule Comprehensive Metabolic Panel Lab Routine Benign essential hypertension Ordered: 05/04/2025 Lipid Panel, Standard Lab Routine Benign essential hypertension Ordered: 05/04/2025 XR Knee 4+ Views Right Imaging Routine Chronic pain of right knee Ordered: 05/04/2025 Scheduled Referrals Name Type Priority Associated Diagnoses Order Schedule Referral to Orthopaedic Surgery Outpatient Referral Routine Chronic pain of right knee Expected: 05/04/2025 (Approximate), Expires: 05/04/2026 documented as of this encounter Visit Diagnoses Diagnosis Benign essential hypertension- Primary Essential hypertension, benign Chronic pain of right knee Encounter for immunization documented in this encounter Additional Health Concerns Assessment Noted Time PHQ-9 Depression Total Score: 0 10/23/19 25 2:14 PM EDT documented as of this encounter Care Teams Anchor Tack Puller Relationship Specialty Start Date End Date Gil Nath MD [address] [place] [address] PCP - General Internal Medicine 04/19/14 documented as of this encounter
--- OUTSIDE RECORDS SUMMARY | 2025-05-04 11:35 | XMS_ITS | Encounter Summary ---
Author Organization [employer] Address [address] [place] [address] [place] [address] Care Team Providers Care Dry Cell Sealer Name Role Phone Gil Nath MD Primary Care Provide r Encounter Details Date Type Department Care Team ([facility] st Contact Info) Description 05/30/2022 Orders Only [facility] MEDICINE [address] [place] [address] Gely Neely RN Social History Tobacco Use Types Packs/Day Years Used Date Smoking Tobacco: Never Assessed Sex and Gender Information Value Date Recorded Sex Assigned at Male 04/09/2022 10:16 AM EDT Legal Sex Male 10:16 AM EDT Gender Identity Male 04/09/2022 10:16 AM EDT Sexual Orientation Straight 06/21/2022 11 :41 AM EST documented as of this encounter Plan of Treatment Not on file documented as of this encounter Visit Diagnoses Not on filedocumented in this encounter Care Teams Dry Cell Sealer Relationship Specialty Start Date End Date Gil Nath MD [address] [place] [address] PCP - General Internal Medicine 04/19/14 documented as of this encounter
--- OUTSIDE RECORDS SUMMARY | 2025-05-04 11:35 | XMS_ITS | Clinical Summary ---
Author Organization [employer] Address [address] [place] [address] 7 [place] [address] Care Team Providers Care Health Officer Name Role Phone Gil Nath MD Primary Care Provide r Allergies No known active allergies Medications amLODIPine (Norvasc) 2.5 MG tabletIndication s:Benign essential hypertension Take 1 tablet (2.5 mg) by mouth Once per day. 90 tablet 1 05/04/20 Active hydroCHLOROthiaz catalina 12.5 MG tabletIndication s:Benign essential hypertension Take 1 tablet (12.5 mg) by mouth Once per day. 90 tablet 3 05/04/20 Active lisinopril 40 MG tabletIndication s:Benign essential hypertension Take 1 tablet (40 mg) by mouth Once per day. 90 tablet 3 05/04/20 Active hydroCHLOROthiaz catalina 12.5 MG tabletIndication s:Benign essential hypertension TOME ANGELIQUE TABLETA POR VIA ORAL TODOS [place] 90 tablet 3 10/02/19 25 025 Discontinued(Re order (will not trigger notification to Pharmacy)) amLODIPine (Norvasc) 2.5 MG tabletIndication s:Benign essential hypertension Take 1 tablet (2.5 mg) by mouth Once per day. 90 tablet 1 10/23/19 25 025 Discontinued(Re order (will not trigger notification to Pharmacy)) lisinopril 40 MG tabletIndication s:Benign essential hypertension TAKE 1 TABLET (40 MG) BY MOUTH ONCE PER DAY. 90 tablet 3 12/01/19 25 025 Discontinued(Re order (will not trigger notification to Pharmacy)) Active Problems Problem Noted Date Diagnosed Date Right knee pain 05/04/2025 Assessment & Plan (05/04/2025 9:55 AM EST): Pt here with c/o acute on Chronic right knee pain likely due to degenerative arthritis. No evidence of acute injury or effusion. Possible internal derangement cannot be ruled out; radiograph may not show soft tissue pathology. - Ordered right knee radiograph to be performed today. Referred to orthopedics for further evaluation. Advised to begin exercise as tolerated. Will contact if radiograph or laboratory results are abnormal. Overweight (BMI 25.0-29.9) 10/22/2024 Assessment & Plan (10/22/2024 2:37 PM EDT): Dietary Recommendations: Fruits, vegetables, whole grains, protein foods, and fat-free or low-fat dairy products are healthy choices. Eat different types of protein foods in your diet. This can include seafood, lean meats, poultry, beans, peas, lentils, nuts, seeds, soy products, and eggs. Limit foods and beverages higher in added sugars, saturated fat, and sodium. Exercise Recommendations: At least 150 minutes of moderate-intensity physical activity per week, or an equivalent combination of moderate- and vigorous-intensity activity Preventative health care 10/01/2023 Assessment & Plan (10/22/2024 2:36 PM EDT): PSA: 09/19/2024 Normal Colorectal CA Screen: 06/[address] Jarquin Assessment & Plan (10/01/2023 3:13 PM EDT): Colorectal CA Screen: 06/[address] Jarquin PSA: 08/2023 Normal Asymptomatic microscopic hematuria 06/21/2022 Assessment & Plan (06/21/2022 11:36 AM EST): Resolved Pt seen in the ER with c/o dysuria back in 12/2017 UA positive for UTI. Treated with Abx with good results, pt tells me that since then he has had two episodes of painless hematuria over the last week Of not previously pt has had hematuria for which he was seen by Urology Previous Urine cytology was negative for malignancy, Pt seen by Dr. Chamorro for bilateral hydroceles Pt was seen on 09/14/[address] Chamorro and underwent cystoscopy that was wnl. aside from BPH Pt was last seen by Dr. Chamorro for recurrence of hematuria, last note on record 2017 Pt tells me that because of billing issues he was unable to continue to follow records will be requested Repeat UA 04/2022 negative for blood Multiple thyroid nodules 06/21/2022 Overview (02/14/2023): initially ID'd 11/2021. f/u US performed 02/08/23; ACR TI-RADS category: 3 TR3 (3 points): FNA if more than or equal to 2.5 cm in maximum dimension, follow up ultrasound in 1, 3 and 5 years if 1.5 to 2.4 cm in maximum dimension. Assessment & Plan (10/01/2023 2:52 PM EDT): Pt with previous c/o mass on the rt side of his neck, exam was suggestive of enlarged lymph node,ct of neck 01/21/12 showed a 12 mm thyroid nodule. A f/u US was on 01/25/12 showed a 1.9 cm mixed cystic and solid nodule. Pt seen by Dr Josue on 04/22/2012 and on 05/19/12 pt underwent FNA of the nodule by Dr Amaral. Cytopathology was negative for malignant cells. Repeat thyroid US 08/04/2014 showed a stable 1.8 x 1.1 x 1.2 rt lobe heterogeneous nodule for which continued surveillance and consideration for FNA was recommended by radiology. Pt was referred back to Dr. Josue.He was last seen 08/2014, Dr Josue recommended to repeat the US in 10/[address] Josue left his practice and pt was never seen for f/u. Pt has been referred to Dr Saucedo and had a repat US on 06/26/2016 that showed ? slight interval decrease in size in the solitary mid right thyroid nodule. He was last seen by Dr Saucedo 07/06/2016 who recommended to repeat U/S in 1 year Pt tells me he never followed up Repeat Thyroid U/S 02/06/2023: FINDINGS: Estimated total number of nodules greater than or equal to 1 cm: 1. Belt Polisher nodules are described as follows: 1. Location: Right inferior. Size: 1.0 x 0.9 x 1.0 cm, volume 0.5 mL. Previously: 1.5 x 1.0 x 1.3 cm, volume 1.0 mL. Nodule characteristics: Composition: Solid (2). Echogenicity: Isoechoic (1). Shape: Not taller than wide (0). Margins: Ill-defined (0). Echogenic Foci: None (0). ACR TI-RADS total points: 3 ACR TI-RADS category: 3 Significant change in size (>/= 20% in 2 dimensions and minimal increase of 2 mm or 50% or greater increase in volume): No Change in features: No Change in ACR TI-RADS risk category: No NODES: No lymphadenopathy is seen in the tissue surrounding the thyroid gland. IMPRESSION: A small right thyroid lobe nodule seen, as detailed. No specific ultrasound follow-up is recommended. Assessment & Plan (01/03/2023 2:37 PM EDT): Previous US thyroid 11/09/2021 Findings of concern: Lower pole right lobe: 1.3 x 1.0 x 1.1 cm volume 0.7 mL nodule. Prior: 1.5 x 1.0 x 1.3 cm volume 1.0 mL Category TR4: recommended f/up ultrasound in 1, 2, 3, and 5 years if 1.0 to 1.4 cm in maximum dimension. Assessment & Plan (06/21/2022 11:39 AM EST): Pt with previous c/o mass on the rt side of his neck, exam was suggestive of enlarged lymph node,ct of neck 01/21/12 showed a 12 mm thyroid nodule. A f/u US was on 01/25/12 showed a 1.9 cm mixed cystic and solid nodule. Pt seen by Dr Josue on 04/22/2012 and on 05/19/12 pt underwent FNA of the nodule by Dr Amaral. Cytopathology was negative for malignant cells. Repeat thyroid US 08/04/2014 showed a stable 1.8 x 1.1 x 1.2 rt lobe heterogeneous nodule for which continued surveillance and consideration for FNA was recommended by radiology. Pt was referred back to Dr. Josue.He was last seen 08/2014, Dr Josue recommended to repeat the US in 10/[address] Josue left his practice and pt was never seen for f/u. Pt has been referred to Dr Saucedo and had a repat US on 06/26/2016 that showed ? slight interval decrease in size in the solitary mid right thyroid nodule. He was last seen by Dr Saucedo 07/06/2016 who recommended to repeat U/S in 1 year Pt tells me he never followed up Repeat Thyroid U/S 11/13/2021 showed bilateral thyroid nodules , for qhich continue US surveillance was recommended, also there was heterogeneous thyroid echotexture which can be associated with thyroiditis Repeat TSH 04/2022 Normal Lipoma of back 06/21/2022 Assessment & Plan (12/24/2023 2:49 PM EDT): Pt had a palpable mass posterior back suggestive of lipoma Soft tissue US was done on 01/25/12 and was negative. Radiologist mentioned you sometimes are unable to see lipomas on US. Pt was seen by general surgery evaluation for consideration of excision. Pt was seen by Dr Owen (surgeon) 03/20/12) according to Dr Owen pt did not want to have it excised at that time. Finally now s/p excision by izabela thorne with good results Assessment & Plan (10/01/2023 3:12 PM EDT): Pt had a palpable mass posterior back suggestive of lipoma Soft tissue US was done on 01/25/12 and was negative. Radiologist mentioned you sometimes are unable to see lipomas on US. Pt was seen by general surgery evaluation for consideration of excision. Pt was seen by Dr Owen (surgeon) 03/20/12) according to Dr Owen pt did not want to have it excised at that time. On exam continues same size. has not changed. 5 cm x [address] izabela thorne Assessment & Plan (01/03/2023 3:15 PM EDT): On exam continues same size. has not changed from last visit 06/21/22. 5 x 5 cm. Assessment & Plan (06/21/2022 11:53 AM EST): Pt had a palpable mass posterior back suggestive of lipoma Soft tissue US was done on 01/25/12 and was negative. Radiologist mentioned you sometimes are unable to see lipomas on US. Pt was seen by general surgery evaluation for consideration of excision. Pt was seen by Dr Owen (surgeon) 03/20/12) according to Dr Owen pt did not want to have it excised at that time. On exam continues same size. has not changed. 5 cm x 5 cm. Benign essential hypertension 09/08/2015 Assessment & Plan (05/04/2025 8:27 AM EST): Patient here for a follow up regarding [...] Cholesterol: 42 mg/dL Total Cholesterol: 148 mg/dL Assessment & Plan (10/22/2024 3:11 PM EDT): Images from the original note were not included. Patient here for a follow up regarding his Hypertension He is currently controlled on a regimen of: Lisinopril [...] were within normal limits. Plan: continue current regimen patient advised to adhere to a low sodium diet, encouraged about medication compliance, counseled about weight loss f/u 4 months The 10-year ASCVD risk score (Dereck SALMERON, et al., 2019) is: 4.3% Values used to calculate the score: Age: 54 years Sex: Male Is Non- : No Diabetic: No Tobacco smoker: No Systolic Blood Pressure: 119 mmHg Is BP treated: Yes HDL Cholesterol: 42 mg/dL Total Cholesterol: 148 mg/dL Assessment & Plan (04/14/2024 3:02 PM EST): Patient with Hypertension currently controlled on a regimen of: Lisinopril 40 mg po daily, Hctz 12.5 mg po daily and Amlodipine 2.5 mg po daily Most recent electrolytes, Bun and Creatinine done on: 08/24/2023 were within normal limits. Plan: continue current regimen, Repeat BMP patient advised to adhere to a low sodium diet, encouraged about medication compliance, counseled about weight loss f/u 4 months Assessment & Plan (12/24/2023 2:48 PM EDT): Patient with Hypertension currently controlled on a regimen of: Lisinopril 40 mg po daily, Hctz 12.5 mg po daily and Amlodipine 2.5 mg po daily Most recent electrolytes, Bun and Creatinine done on: 08/24/2023 were within normal limits. Plan: continue current regimen patient advised to adhere to a low sodium diet, encouraged about medication compliance, counseled about weight loss f/u 4 months Assessment & Plan (10/01/2023 2:47 PM EDT): Patient with Hypertension currently controlled on a regimen of: Lisinopril 40 mg po daily, Hctz 12.5 mg po daily and Amlodipine 2.5 mg po daily Most recent electrolytes, Bun and Creatinine done on: 08/24/2023 were within normal limits. Plan: continue current regimen patient advised to adhere to a low sodium diet, encouraged about medication compliance, counseled about weight loss f/u 4 months Assessment & Plan (01/03/2023 3:31 PM EDT): BP 121/81, BP well managed no medications will be altered today. Continue current therapies. Ordered bmp to check electrolytes (hydrochlorothiazide) Counseled low-salt diet, advised increase in exercise to 30 min/ day most days, weight loss if applicable. Call clinic for high BP >170/90 or low <90/60. Assessment & Plan (06/21/2022 11:34 AM EST): Patient with Hypertension currently controlled on a regimen of: Lisinopril 40 mg po daily, Hctz 12.5 mg po daily and Amlodipine 2.5 mg po daily Most recent electrolytes, Bun and Creatinine done on: 02/02/2022 were within normal limits. Plan: continue current regimen patient advised to adhere to a low sodium diet, encouraged about medication compliance, counseled about weight loss f/u 4 months Bilateral hydrocele 02/18/2012 Old torn meniscus of knee 02/18/2012 Resolved Problems Problem Noted Date Diagnosed Date Resolved Date Annual physical exam 10/01/2023 025 Assessment & Plan (10/22/2024 2:32 PM EDT): Patient is here for a routine Physical Exam His exam today is: within normal limits Assessment & Plan (10/01/2023 3:04 PM EDT): Within normal limits Encounters Date Type Department Care Team Description 05/04/2025 9:15 AM EST Office Visit [address] [address] Gil Nath MD Benign essential hypertension (Primary Dx); Chronic pain of right knee; Encounter for immunization 05/04/2025 Travel 04/29/[address] [address] Cary Murdock [place] Chart Prep 04/26/2025 Patient Outreach [facility] [address] [place] [address] Gil Nath MD Pre-visit Planning ([facility] screening was completed on 10/22/2024) 02/22/2025 Telephone [facility] [address] [place] [address] Gil Nath MD April recall from Last 3 Months Immunizations Immunization Administration Dates Next Due Hep B, adult 06/25/2024,01/24/2024,12/24/2023 Influenza Injectable Quadriv alant Preservative Free IIV4 MDCK 03/15/2020 Influenza injectable quadriv alent IIV4 with preservative 02/26/2018,04/22/2015 Influenza injectable quadriv alent preservative free 02/20/2021,03/10/2018,03/14/2016 Influenza, IIV3, injectable 03/03/2014 Influenza, seasonal, injecta ble, preservative free 05/04/2025,04/10/2024,03/27/2017,2015 Moderna Covid-19 Vaccine 12+ 06/04/2021,09/26/19 21 Pneumococcal Conjugate PCV 20 10/22/2024 Tdap 04/24/2017,06/29/2014 Zoster, Recombinant 08/23/2022,06/21/2022 Social History Tobacco Use Types Packs/Day Years [...] Orientation Straight 06/21/2022 11 :41 AM EST Last Filed Vital Signs Vital Sign Reading Time Taken Comments Blood Pressure 122/80 05/04/2025 8:55 AM EST Pulse 68 05/04/2025 8:55 AM EST Temperature 36.7 C (98 F) 05/04/2025 8:55 AM EST Respiratory Rate 18 05/04/2025 8:55 AM EST Oxygen Saturation 98% 10/22/2024 2:06 PM EDT Inhaled Oxygen Concentration - - Weight 96.2 kg (212 lb) 05/04/2025 8:55 AM EST Height 180.3 cm (5' 11 ) 05/04/2025 8:55 AM EST Body Mass Index 29.57 05/04/2025 8:55 AM EST Plan of Treatment Health Maintenance Due Date Last Done Comments CT Colonography 1970 FIT DNA/Cologuard 1970 FIT 1970 FOBT 1970 HIV Screening 1970 Sigmoidoscopy 1970 COVID-19 Vaccine ( season) 2025 06/04/2021, 09/25/2020, 08/28/2020 Depression Screening 10/22/2025 10/22/2024, 10/23/19 25 Disability Screening 10/22/2025 10/22/2024 SDOH Screening 10/22/2025 10/22/2024 Alcohol/Substance Use Screening 05/04/2026 05/04/2025 Tobacco Screening 05/04/2026 05/04/2025 DTaP/Tdap/Td Vaccines (3 - Td or Tdap) 04/24/2027 04/24/2017, 06/29/2014 Lipid Panel 09/19/2029 09/19/2024, 08/08, 02/02/2022 Colonoscopy 07/08/2033 07/08/2023 Colorectal Cancer Screening 07/08/2033 RSV Patients and Patients Aged 60 years or older (1 - 1-dose 75+ series) 2045 Hepatitis C Screening Completed 02/02/2022 Zoster Vaccines Completed 08/23/2022, 06/21/2022 Hepatitis B Vaccines Completed 06/25/2024, 01/24/2024, 12/24/2023 Pneumococcal Vaccine: 50+ Years Completed 10/22/2024 Influenza Vaccine Completed 05/04/2025, , 02/20/2021, Additional history exists HIB Vaccines Aged Out No longer eligi ble based on patient's age to complete this topic HPV Vaccines Aged Out No longer eligi ble based on patient's age to complete this topic Hepatitis A Vaccines Aged Out No long er eligible based on patient's age to complete this topic IPV Vaccines Aged Out No longer eligi ble based on patient's age to complete this topic Meningococcal B Vaccine Aged Out No l onger eligible based on patient's age to complete this topic Meningococcal Vaccine Aged Out No pallavi neel eligible based on patient's age to complete this topic RSV under 20 months Aged Out No longe r eligible based on patient's age to complete this topic Rotavirus Vaccines Aged Out No longer eligible based on patient's age to complete this topic Procedures Procedure Name Priority Date/Time Associated Diagnosis Comments LIPID PANEL, STANDARD Routine 09/19/2024 7:27 AM EDT Benign essential hypertension HM COLONOSCOPY Routine 07/08/2023 ZZZ HISTORICAL HEPATITIS C AB W/REFL TO HCV RNA, QN, PCR Routine 02/02/2022 9:01 AM EDT from Last 3 Months or Most Recently Relevant to Health Maintenance Results * Lipid Panel, Standard (09/19/2024 7:27 AM EDT) Triglycerides 47 <150 mg/dL [facility] Comment:Desirable Triglyceri de: less than 150 mg/dLBorderline High Triglyceride 150-199 mg/dLHigh Triglyceride: 200-499 mg/dLVery High Triglyceride: greater than or equal to 5OO mg/dL Cholesterol 148 <200 mg/dL [facility] Comment:Desirable Cholestero l: less than 200 mg/dLBorderline High Cholesterol: 200-239 mg/dLHigh Cholesterol: greater than 239 mg/dL LDL Cholesterol Calculated 97 <100 mg/dL [facility] Comment:Desirable LDL: less than 100 mg/dLNear Optimal/Above Optimal LDL: 110- 129 mg/dLBorderline High LDL: 130-159 mg/dLHigh LDL: 160-189 mg/dLVery High LDL: greater than or equal to 190 mg/dL HDL Cholesterol 42 >40 mg/dL [facility] Comment:Desirable HDL: great er than 40 mg/dL Note: This HDL assay may give artificially low results in patients with liver disease. Blood Venous blood specimen / Unknown 09/19/2024 7:27 AM EDT 09/19/2024 7:28 AM EDT Gil Denton MD LAB BLOOD ORDERABLES Final Result [facility] [address] [place] [phone] * Colonoscopy (07/08/2023) Colonoscopy Normal Normal Comment:DR Jarquin [facility] Provider HEALTH MAINTENANCE Final Result * HEPATITIS C AB W/REFL TO HCV RNA, QN, PCR (02/02/2022 9:01 AM EDT) HEPATITIS C ANTIBODY NON-REACT CHASE NON-REACT CHASE [facility] INDEX 0.22 <1.00 [facility] Comment: HCV antibody was non-reactive. There is no laboratory evidence of HCV infection. In most cases, no further action is required. However, if recent HCV exposure is suspected, a test for HCV RNA (test code 60303) is suggested. For additional information please refer to [email or web address] (This link is being provided for informational/ educational purposes only.) 02/02/2022 9:01 AM EDT us Gil Denton MD HISTORICAL/NON ORDERA BLE LABS Final Result [facility] [address] from Last 3 Months or Most Recently Relevant to Health Maintenance Insurance [employer] OUT OF STATE Care Teams Health Officer Relationship Specialty Start Date End Date Gil Nath MD [address] [place] [id number] PCP - General Internal Medicine 04/19/14
--- OUTSIDE RECORDS SUMMARY | 2025-05-04 11:35 | XMS_ITS | Encounter Summary ---
Author Organization [employer] Address [address] [place] [address] [address] [place] [address] Care Team Providers Care Stabber Name Role Phone Gil Nath MD Primary Care Provide r Encounter Details Date Type Department Care Team (Latest Contact Info) Description 05/04/2025 Travel Social History Tobacco Use Types Packs/Day Years Used Date Smoking Tobacco: Never Passive Smoke Exposure: Never Smokeless Tobacco: Never Alcohol Use Standard Drinks/Week Comments Never 0 [...] Diagnoses Not on filedocumented in this encounter Additional Health Concerns Assessment Noted Time PHQ-9 Depression Total Score: 0 10/23/19 25 2:14 PM EDT documented as of this encounter Care Teams Stabber Relationship Specialty Start Date End Date Gil Nath MD [address] [place] [address] PCP - General Internal Medicine 04/19/14 documented as of this encounter
--- OUTSIDE RECORDS SUMMARY | 2025-05-04 11:36 | XMS_ITS | Encounter Summary ---
Author Organization [employer] Address [address] [place] [address] [place] [address] Care Team Providers Care Provider Relations Rep Name Role Phone Gil Nath MD Primary Care Provide r Reason for Visit * Reason Onset Date Comments Chart Prep 04/29/2025 Encounter Details Date Type Department Care Team ([facility] st Contact Info) Description 04/29/2025 Telephone [facility] [address] [place] [address] Cary Murdock [place] Chart Prep Social History Tobacco Use Types Packs/Day Years [...] AM EST documented as of this encounter Miscellaneous Notes * Telephone Encounter - Cary Murdock MA - 04/29/2025 10:57 AM EST Chart Prep Labs: not applicable Images: not applicable Referrals: not applicable Vaccines due: Covid and Flu Screenings: not applicable Overdue care gaps: SBIRT and Oral health screening documented in this encounter Plan of Treatment Not on file documented as of this encounter Visit Diagnoses Not on filedocumented in this encounter Additional Health Concerns Assessment Noted Time PHQ-9 Depression Total Score: 0 10/23/19 25 2:14 PM EDT documented as of this encounter Care Teams Provider Relations Rep Relationship Specialty Start Date End Date Gil Nath MD [address] [place] [id number] PCP - General Internal Medicine 04/19/14 documented as of this encounter
--- OUTSIDE RECORDS SUMMARY | 2025-05-04 11:36 | XMS_ITS | Patient Health Record ---
Author Organization [facility] Address [address] [place] [id number] Care Team Providers Care Wood Carver Name Role Phone Jose Alberto Denton MD, Gil Primary Care Provide r Unavailable Memo Jarquin [phone] Allergies No Known Allergies Reason For Referral No Information Medications Medication SIG (Take, Route, Frequency, Duration) Notes Start Date End Date Status amLODIPine Besylate 2.5 MG Tablet TOME ANGELIQUE TABLETA POR V A ORAL EN LA MA JOSE J Oral; Duration: 90 Active Lisinopril 40 MG Tablet TOME ANGELIQUE TABLETA TODOS LOS D Oral; Duration: 90 Active hydroCHLOROthiazide 12.5 MG Tablet TOME ANGELIQUE TABLETA TODOS LOS D EN LA MA JOSE J (12.5 MG) Oral; Duration: 90 Active Immunizations Vaccine Route Administration Date Status Comme nts Influenza Unknown 02/27/2022 Administered Social History Tobacco Use: Social History Observation Description Date Details (start date - stop date) Never Smoker NA - NA Social History Drugs/Alcohol: Social Info Question Answer Notes Alcohol Screen Did you have a drink containing alcohol in the past year? Yes How often did you have a drink containing alcohol in the past year? 2 to 4 times a month (2 points) How many drinks did you have on a typical day when you were drinking in the past year? 5 or 6 drinks (2 points) How often did you have 6 or more drinks on one occasion in the past year? 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 He drinks some alcohol on the weekends. Problems Problem Type SNOMED Code ICD Code Onset Dates Problem Status W/U Status Risk Notes Problem Colon cancer screening (237114882) Colon cancer screening (Z12.11) Active confirmed Problem Diverticular disease of colon (597232406) Diverticulosis of large intestine without perforation or abscess without bleeding (K57.30) Active confirmed Problem Preprocedural examination (475802224676069) Preprocedural examination (Z01.818) Active confirmed Plan Of Treatment Future Test Test Name Order Date COLONOSCOPY 02/20/2023 Insurance Providers Payer Name Payer Address Payer Phone Subscriber Number Group Number Insured Name Patient Relationship to Insured Coverage Start Date Coverage End Date [employer]ANS [address] [place] [id number] TINO MIRANDA Self - patient is the insured Medical (General) History Medical History History ICD Code HTN Denies DC,DM,CVA,Lung disease,renal dise ase Surgical History Surgery Date(Month/Year) vasectomy 2017 He has a scar in the right l ower quadrant that he says was not from an appendectomy. He describes that he was having a lot of vomiting as a young child and he had surgery to correct that. It sounds like it was some type of obstruction.
== END 2025-05-04 09:51 | disposition home or self-care (01) ==
LOC: HO.HHCX 09:50
PROVIDERS: PCP Internal Medicine; Visit Provider Internal Medicine
DX: M25.561 Pain in right knee (principal); G89.29 Other chronic pain
CPT/HCPCS: 73564

== ENCOUNTER → 2025-05-04 10:05 | Outpatient (BNV) | payer BC, SELFPAY | PROVIDERS: PCP Internal Medicine; Visit Provider Radiology Diagnostic Radiology | DX: M17.11 Unilateral primary osteoarthritis, right knee (principal) | CPT/HCPCS: 73564 ==